=== PATIENT | female | born 1945 | race Caucasian/White ===

== ENCOUNTER 2023-04-07 10:55 | Outpatient (OUT) | payer MEDICARE, SELFPAY ==
--- NOTE | 2023-04-07 | XR_ITS ---
[address] [address] Patient Name: SUYAPA CADENA MRN: [id number] date: 1945 Sex: F Assigned Patient Location: [facility] Current Patient Location: [facility] Accession/Order Number: [id number] Exam Date: 04/07/2023 11:20 Report Date: 04/07/2023 16:50 At the request of: YUMIKO COWAN Procedure: XR ankle JESSICA min 3V EXAMINATION: XR ankle JESSICA min 3V HISTORY: BILATERAL ANKLE PAIN COMPARISON: No relevant comparison available. FINDINGS: RIGHT FINDINGS: BONES: No acute fracture or dislocation. Moderate degenerative change of the midfoot with joint space narrowing and marginal osteophyte formation SOFT TISSUES: Negative. No visible soft tissue swelling. OTHER: A joint effusion LEFT FINDINGS: BONES: No acute fracture or dislocation. Moderate degenerative changes of the midfoot with joint space narrowing and marginal osteophyte formation. SOFT TISSUES: Coarse soft tissue calcifications anterior distal lower leg OTHER: Negative. XR/XR ankle JESSICA min 3V IMPRESSION: RIGHT CONCLUSION: Degenerative changes with joint effusion LEFT CONCLUSION: Degenerative changes and soft tissue calcification Electronically authenticated by: CECI JACK Date: 04/07/2023 16:50
== END 2023-04-07 10:56 | disposition home or self-care (01) ==
LOC: RAD 10:55
PROVIDERS: Visit Provider Podiatrist Foot & Ankle Surgery
DX: M25.572 Pain in left ankle and joints of left foot (principal); M25.571 Pain in right ankle and joints of right foot
CPT/HCPCS: 73610